=== PATIENT | male | born 1980 | race Caucasian/White ===

== ENCOUNTER 2017-06-10 07:05 | Emergency (ER) | payer BC ==
[2017-06-10] MEDS: ONDANSETRON 4 MG INJ IV ×2 (07:24→13:30)
[2017-06-10] MEDS: HYDROmorphONE 1 MG/ML SYG IV ×3 (07:24→11:35)
[2017-06-10] MEDS: DIPHTH/TET/ACEL PERTUSS (ADULT) 0.5 ML VIAL IM* (07:26)
[2017-06-10 07:37] LABS: ADD MAN DIFF? NO
[2017-06-10 07:47] LABS: BASOPHIL # 0.1 10^3/ul (0.0-0.1); BASOPHILS % 0.5 % (0.0-2.0); EOSINOPHILS # 0.4 10^3/ul (0.0-0.5); EOSINOPHILS % 3.2 % (0.0-7.0); HEMATOCRIT 44.2 % (42.0-52.0); HEMOGLOBIN 15.7 g/dl (14.0-18.0); LYMPHOCYTES # 2.1 10^3/ul (0.8-2.9); LYMPHOCYTES % 18.4 % (15.0-51.0); MEAN CORPUSCULAR HEMOGLOBIN 30.7 pg (29.0-33.0); MEAN CORPUSCULAR HGB CONC 35.5 g/dl (32.0-37.0); MEAN CORPUSCULAR VOLUME 86.5 fl (82.0-101.0); MEAN PLATELET VOLUME 9.4 fl (7.4-10.4); MONOCYTE # 0.7 10^3/ul (0.3-0.9); MONOCYTES % 5.9 % (0.0-11.0); NEUTROPHIL # 8.1 10^3/ul (1.6-7.5); PLATELET COUNT 253 10^3/UL (140-415); RED BLOOD COUNT 5.11 10^6/ul (4.70-6.10); RED CELL DISTRIBUTION WIDTH 12.2 % (11.5-14.5)
[2017-06-10 07:47] LABS: WHITE BLOOD COUNT 11.4 10^3/ul (4.8-10.8)
[2017-06-10] MEDS: SOD CHLORIDE 0.9% 1,000 ML IV (07:54)
[2017-06-10 08:04] LABS: ANION GAP 19 (8-16); BLOOD UREA NITROGEN 13 mg/dl (7-20); CALCIUM 9.3 mg/dl (8.4-10.2); CARBON DIOXIDE 26 mmol/L (21-31); CHLORIDE 103 mmol/L (97-110); CREATININE 0.82 mg/dl (0.61-1.24); GLUCOSE 129 mg/dl (70-220); POTASSIUM 3.7 mmol/L (3.5-5.1); SODIUM 144 mmol/L (135-144)
[2017-06-10 08:11] LABS: INR 0.97
[2017-06-10 08:12] LABS: PARTIAL THROMBOPLASTIN TIME 30.1 Sec (25.0-35.0)
[2017-06-10] MEDS: IOHEXOL 100 ML (09:00)
[2017-06-10] MEDS: SOD CHLORIDE 0.9% 100 ML (09:00)
[2017-06-10] MEDS: IOHEXOL 350MG/ML 50 ML BTL (09:00)
[2017-06-10] MEDS: PROPOFOL 200 MG INJ IV (10:51)
== END 2017-06-10 14:41 | disposition home or self-care (01) ==
LOC: E/R 07:05
DX: S63.253A Unspecified dislocation of left middle finger, initial encounter (principal); S83.104A Unspecified dislocation of right knee, initial encounter; R07.9 Chest pain, unspecified; R51 Headache; V89.2XXA Person injured in unspecified motor-vehicle accident, traffic, initial encounter
CPT/HCPCS: 26670; 36415; 70450; 71275; 72125; 73130-LT; 73562; 73562-50; 75635; 80048; 85025; 85610; 85730; 90471; 90715; 94770; 96374; 96375; 96376; 99285-25